=== PATIENT | male | born 1980 | race African-American/Black ===

== ENCOUNTER 2018-07-05 00:35 | Emergency (ER) | payer SELFPAY ==
[2018-07-05] MEDS ORDERED: SULFAMETHOXAZOLE/TRIMETHOPRIM 800-160 MG TABLET PO ONE (02:51)
--- NOTE | 2018-07-05 02:53 | ER Document Report ---
ED General - General Chief Complaint: Testicular Lump Stated Complaint: POSSIBLE ABCESS Time Seen by Provider: 07/05/18 02:06 Notes: Patient is a 37-year-old male without chronic medical problems who presents with several days of progressively worsening swelling and pain to his left scrotum. Patient states the area started as a small bump and has gotten increasingly bigger now described as a severe, throbbing, constant discomfort. Touching the area or walking worsens the pain. Nothing improves the pain. No history of similar symptoms in the past. No fever or constitutional symptoms. Has not seen his primary care physician regarding today's concerns. TRAVEL OUTSIDE OF THE [place] IN LAST 30 DAYS: No - Related Data Allergies/Adverse Reactions: No Known Allergies Allergy (Unverified 12/22/11 19:29) Past Medical History - General Information source: Patient - Social History Smoking Status: Former Smoker Chew tobacco use (# tins/day): No Frequency of alcohol use: None Drug Abuse: Marijuana Lives with: Spouse/Significant other Family History: Reviewed & Not Pertinent Patient has suicidal ideation: No Patient has homicidal ideation: No Renal/ Medical History: Denies: Hx Peritoneal Dialysis - Immunizations Hx Diphtheria, Pertussis, Tetanus Vaccination: Yes Review of Systems - Review of Systems Notes: Constitutional: Negative for fever. HENT: Negative for sore throat. Eyes: Negative for visual changes. Cardiovascular: Negative for chest pain. Respiratory: Negative for shortness of breath. Gastrointestinal: Negative for abdominal pain, vomiting or diarrhea. Genitourinary: Negative for dysuria. Musculoskeletal: Negative for back pain. Skin: Positive for left scrotal wall abscess Neurological: Negative for headaches, weakness or numbness. 10 point ROS negative except as marked above and in HPI. Physical Exam - Vital signs Vitals: Temp Pulse Resp BP Pulse Ox 98.2 F 70 18 150/73 H 98 07/05/18 00:41 07/05/18 00:41 07/05/18 00:41 07/05/18 00:41 07/05/18 00:41 Interpretation: Hypertensive Notes: PHYSICAL EXAMINATION: GENERAL: Well-appearing, well-nourished and in no acute distress. HEAD: Atraumatic, normocephalic. EYES: Pupils equal round and reactive to light, extraocular movements intact, sclera anicteric, conjunctiva are normal. ENT: nares patent, oropharynx clear without exudates. Moist mucous membranes. NECK: Normal range of motion, supple without lymphadenopathy LUNGS: Breath sounds clear to auscultation bilaterally and equal. No wheezes rales or rhonchi. HEART: Regular rate and rhythm without murmurs ABDOMEN: Soft, nontender, normoactive bowel sounds. No guarding, no rebound. No masses appreciated. EXTREMITIES: Normal range of motion, no pitting or edema. No cyanosis. NEUROLOGICAL: No focal neurological deficits. Moves all extremities spontaneously and on command. PSYCH: Normal mood, normal affect. SKIN: Warm, Dry, normal turgor, there is a 2 x 2 centimeter abscess on the left anterior scrotal wall Course - Re-evaluation Re-evalutation: 07/05/18 04:20 Patient presents with a left scrotal wall abscess which was incised and drained without complication. Abscess pocket confirmed by ultrasound. Wound was irrigated and packed. Patient has normal vitals, no indication for labs or imaging beyond bedside ultrasound. Patient was started on trimethoprim sulfamethoxazole. Wound care instructions reviewed. At this time will discharge with return precautions and follow-up recommendations. Verbal discharge instructions given a the bedside and opportunity for questions given. Medication warnings reviewed. Patient is in agreement with this plan and has verbalized understanding of return precautions and the need for primary care follow-up in the next 24-72 hours. - Vital Signs Vital signs: Temp Pulse Resp BP Pulse Ox 98.4 F 59 L 16 126/87 H 99 07/05/18 03:01 07/05/18 03:01 07/05/18 03:01 07/05/18 03:01 07/05/18 03:01 Procedures - Incision and Drainage Left scrotum Type: Simple Anesthetic type: 1% Lidocaine Blade size: 11 I&D procedure: Betadine prep applied, Iodoform packing placed Incision Method: Incision made by scalpel Amount/type of drainage: 10 cc purulent drainage Discharge - Discharge Clinical Impression: Scrotal wall abscess Condition: Good Disposition: HOME, SELF-CARE Additional Instructions: You were seen for an abscess that required drainage. The packing has not fallen out within 24 hours please remove it yourself. After the packing is been removed clean the area with soap and water twice daily. Dress the area after each cleaning. Take all antibiotics as prescribed until completed. Please return if you develop fever, vomiting, the pain at the site worsens, you notice spreading redness from the area, or you have any other symptoms that are concerning to you. Follow-up with your primary doctor within the next 3 to 4 days. Prescriptions: Sulfamethoxazole/Trimethoprim [Bactrim Ds Tablet] 2 tab PO BID #28 tablet
[2018-07-05 03:05] VITALS: BP 126/87
== END 2018-07-05 03:05 | disposition home or self-care (01) ==
LOC: ER 00:35
DX: N49.2 Inflammatory disorders of scrotum (principal)
CPT/HCPCS: 99283; 55100; A6266

== ENCOUNTER 2019-04-28 10:12 | Emergency (ER) | payer SELFPAY ==
[2019-04-28 10:21] VITALS: BP 134/84
[2019-04-28] MEDS ORDERED: DIPH/PERTUSS(ACELL)/TETANUS VAC/PF 0.5 ML SYR (>=10YO) IM ONE (10:24)
--- NOTE | 2019-04-28 10:26 | ER Document Report ---
ED Medical Screen (RME) - General Chief Complaint: Abscess Stated Complaint: ABSCESS/GROIN AREA Time Seen by Provider: 04/28/19 10:21 Information source: Patient Cannot obtain history due to: Other - This is a 38-year-old male present to the emergency room today for an abscess to his thigh at the fold by the groin is rather large fluctuant tender TRAVEL OUTSIDE OF THE [place] IN LAST 30 DAYS: No - Related Data Allergies/Adverse Reactions: No Known Allergies Allergy (Unverified 12/22/11 19:29) Past Medical History Renal/ Medical History: Denies: Hx Peritoneal Dialysis - Immunizations Hx Diphtheria, Pertussis, Tetanus Vaccination: Yes Physical Exam - Vital signs Vitals: Temp Pulse Resp BP Pulse Ox 98.5 F 77 16 134/84 H 99 04/28/19 10:20 04/28/19 10:20 04/28/19 10:20 04/28/19 10:20 04/28/19 10:20 - Skin Skin Temperature: Warm Skin Moisture: Dry Skin Color: Normal Location of irregularity: Other - Tender fluctuant abscess medial left thigh adjacent to groin. Course - Vital Signs Vital signs: Temp Pulse Resp BP Pulse Ox 98.5 F 77 16 134/84 H 99 04/28/19 10:20 04/28/19 10:20 04/28/19 10:20 04/28/19 10:20 04/28/19 10:20
== END 2019-04-28 11:31 | disposition home or self-care (01) ==
LOC: ER 10:12
DX: L02.211 Cutaneous abscess of abdominal wall (principal); Z23 Encounter for immunization
CPT/HCPCS: 90471; 90715; 99283

== ENCOUNTER 2019-09-02 11:21 | Emergency (ER) | payer SELFPAY ==
[2019-09-02 11:27] VITALS: BP 122/75
[2019-09-02] MEDS ORDERED: LIDOCAINE 1% INJ-PF (10 MG/ML) 30 ML SDV INJ ONE (11:59)
--- NOTE | 2019-09-02 12:05 | ER Document Report ---
ED Skin Rash/Insect Bite/Abscs - General Chief Complaint: Skin Problem Stated Complaint: ABSCESS/GROIN AREA Time Seen by Provider: 09/02/19 11:52 Mode of Arrival: Ambulatory Information source: Patient Notes: Patient is a 38-year-old male comes emergency room complaint of having an abscess in his left groin. Patient states he had the same presentation approximately in April of this past year. He had an I&D at that time placed on Bactrim. This 1 popped up the same identical place approximately 4 days ago. States he is here early because he did not wanted to get as large as the last on e. Denies any fever. No nausea vomiting or diarrhea. Patient denies any medical history and particularly no history of diabetes. Abscesses in his left groin. TRAVEL OUTSIDE OF THE [place] IN LAST 30 DAYS: No - HPI Patient complains to provider of: Tender/swollen area Onset: Other - 4 days Onset/Duration: Gradual Quality of pain: Achy Severity: Moderate Pain Level: 3 Skin Character: Abscess Skin Temperature: Warm Quality of rash: Painful Identify cause: No Exacerbated by: Walking Relieved by: Denies Similar symptoms previously: Yes Recently seen / treated by doctor: No - Related Data Allergies/Adverse Reactions: No Known Allergies Allergy (Verified 09/02/19 11:44) Past Medical History - General Information source: Patient - Social History Smoking Status: Never Smoker Chew tobacco use (# tins/day): No Frequency of alcohol use: None Drug Abuse: None Family History: Reviewed & Not Pertinent Renal/ Medical History: Denies: Hx Peritoneal Dialysis - Immunizations Hx Diphtheria, Pertussis, Tetanus Vaccination: Yes Review of Systems - Review of Systems Constitutional: No symptoms reported EENT: No symptoms reported Cardiovascular: No symptoms reported Respiratory: No symptoms reported Gastrointestinal: No symptoms reported Genitourinary: No symptoms reported Male Genitourinary: No symptoms reported Musculoskeletal: No symptoms reported Skin: See HPI, Lesions Hematologic/Lymphatic: No symptoms reported Neurological/Psychological: No symptoms reported Physical Exam - Vital signs Vitals: Temp Pulse Resp BP Pulse Ox 99.0 F 66 16 122/75 96 09/02/19 11:25 09/02/19 11:25 09/02/19 11:25 09/02/19 11:25 09/02/19 11:25 Interpretation: Normal - Notes Notes: PHYSICAL EXAMINATION: GENERAL: Well-appearing, well-nourished and in no acute distress. HEAD: Atraumatic, normocephalic. LUNGS: Breath sounds clear to auscultation bilaterally and equal. No wheezes rales or rhonchi. HEART: Regular rate and rhythm without murmurs ABDOMEN: Soft, nontender, nondistended abdomen. No guarding, no rebound. No masses appreciated. Musculoskeletal: Normal range of motion, no pitting or edema. No cyanosis. NEUROLOGICAL: . Normal speech, normal gait. Normal sensory, motor exams PSYCH: Normal mood, normal affect. SKIN: Examination patient's area concern is his left groin. Visualization of the area shows there to be a 4 cm long by 2 cm wide by unknown depth fluctuant induration area. This is located in the left groin right at the upper thigh limit. It is mildly tender to palpate. This is a site of an old abscess in the skin overlying the fluctuant portion is very thin appearing. Mild erythema tom rounding the area as well. No lymphangitis noticed at this time. Course - Vital Signs Vital signs: Temp Pulse Resp BP Pulse Ox 99.0 F 66 16 122/75 96 09/02/19 11:25 09/02/19 11:25 09/02/19 11:25 09/02/19 11:25 09/02/19 11:25 Procedures - Incision and Drainage Left Groin Type: Complex Anesthetic type: 1% Lidocaine mL's of anesthetic: 3 Blade size: 11 I&D procedure: Betadine prep applied, Iodoform packing placed, Sterile dressing applied Incision Method: Incision made by scalpel Amount/type of drainage: Large amount of thick white pus mixed with blood Notes: 09/02/19 12:58 Loculations were broken up with the forceps. Flushed with approximately 150 mL's and normal saline. An approximately 4 to 5 inches of iodoform were placed. Patient tolerated procedure without any complications. Discharge - Discharge Clinical Impression: Abscess of left groin Condition: Stable Disposition: HOME, SELF-CARE Instructions: Abscess ([facility]), Cephalexin ([facility]), Oral Narcotic Medication ([facility]), Post Incision and Drainage Additional Instructions: As we discussed I placed some string inside to keep it open and draining. You need to change the dressing 2-3 times a day and when wet or dirty. As we also discussed do not submerge herself or get into a box or river stream ocean or pool or bathtub. You may take a shower and let the water run across to it. Once done you can apply some warm moist compresses a washrag as warm as you can stand it from the sink do not set it in the microwave please. Use a warm moist compresses also to 3 times a day for the next several days. As we also discussed if the string does not come out on its own I like you to return in 48 hours for reevaluation. This also to include removal of that string. Also as we discussed monitor this closely if it should appear to be getting worse before then please return to ER for reevaluation. Take all of the antibiotics as prescribed. As we discussed you can use the [facility] on your phone and the zepeda range was $14 for the doxycycline at [facility] and [facility]. Prescriptions: Doxycycline Monohydrate 100 mg PO BID #20 capsule Cephalexin Monohydrate [Keflex 500 mg Capsule] 500 mg PO Q6H 10 Days #40 capsule Forms: Elevated Blood Pressure, Return to Work
[2019-09-02] MEDS ORDERED: HYDROCODONE/ACETAMINOPHEN 5-325 MG (6 TAB/ER DISP) PO PRN (13:10)
== END 2019-09-02 13:42 | disposition home or self-care (01) ==
LOC: ER 11:21
DX: L02.214 Cutaneous abscess of groin (principal)
CPT/HCPCS: 87070; 87075; 87077; 87205; 99283